=== PATIENT | female | born 1990 | race Asian ===

== ENCOUNTER 2017-04-06 12:56 | Outpatient (CLI) | payer OTHER ==
[~2017-04-06] VITALS: Ht 154.9 cm; Wt 67.3 kg
[~2017-04-06 12:56] MED LIST: IBU600 MG PO; PRENATAL PO
[2017-04-06 13:05] VITALS: BP 89/54; PULSE 76; TEMP 98.1
[2017-04-06] MEDS ORDERED: SLOW FE142 MG PO (13:12)
[2017-04-06 13:30] VITALS: BP 85/48; PULSE 74
[2017-04-06 14:07] VITALS: BP 98/64; PULSE 70
== END 2017-04-06 14:25 | disposition home or self-care (01) ==
LOC: LDRO 12:56 → LDR 13:23 → LDRO 14:25
DX: Z34.83 Encounter for supervision of other normal pregnancy, third trimester (principal); Z3A.39 39 weeks gestation of pregnancy
CPT/HCPCS: OP

== ENCOUNTER 2017-04-08 18:43 | Inpatient (IN) | payer OTHER ==
[2017-04-08] VITALS (17 sets, daily range): BP systolic 102–127; BP diastolic 53–85; PULSE 80–100; TEMP 98.6
[~2017-04-08] VITALS: Ht 154.9 cm; Wt 67.3 kg
[~2017-04-08 18:43] MED LIST changes: +SLOW FE142 MG PO
[2017-04-08 19:52] LABS: BASO % 0.2 % (0.0-2.0); EOS % 0.4 % (0-4.0); GRAN # 6.7 (1.4-6.5); GRAN % 79.4 % (42.2-75.2); HEMOGLOBIN 12.1 g/dl (12.5-16.0); LYMPH # 1.2 (1.2-3.4); LYMPH % 13.8 % (20.0-51.0); MEAN CELL VOLUME 95 fl (80.0-100.0); MEAN CORPUSCULAR HEMOGLOBIN 32 pg (27.0-31.0); MEAN CORPUSCULAR HGB CONC 34 g/dl (33.0-37.0); MEAN PLATELET VOLUME 10.5 fl (7.4-10.4); MONO # 0.5 (0.1-0.6); MONO % 5.7 % (1.7-9.3); PLATELET COUNT 238 K/mm3 (130-400); RED BLOOD COUNT 3.75 M/mm3 (4.10-5.30); REDCELL DISTRIBUTION WIDTH-CV 13.1 % (11.5-14.5)
[2017-04-08 19:53] LABS: HEMATOCRIT 35.7 % (37.0-47.0)
[2017-04-08] MEDS ORDERED: MOTRIN 800800 MG/TAB PO (20:31)
[2017-04-08] MEDS ORDERED: PERCOCET 325 MG1 TA2 PO (20:31)
[2017-04-09] VITALS (8 sets, daily range): BP systolic 86–114; BP diastolic 51–65; PULSE 78–89; TEMP 97.6–98.4
[2017-04-10 00:24] VITALS: BP 95/56; PULSE 70; TEMP 98.5
[2017-04-10 08:15] VITALS: BP 90/62; PULSE 88; TEMP 98.2
== END 2017-04-10 15:15 | disposition home or self-care (01) | DRG 775 ==
LOC: LDRO 18:43 → LDR 19:20 → OB 04-09 03:30
PROVIDERS: Obstetrics & Gynecology
PROC: 10E0XZZ Delivery of Products of Conception, External Approach (ICD-10-PCS; principal; 2017-04-08)
PROC: 0KQM0ZZ Repair Perineum Muscle, Open Approach (ICD-10-PCS; 2017-04-08)
DX: O70.1 Second degree perineal laceration during delivery (principal); Z3A.39 39 weeks gestation of pregnancy; Z37.0 Single live birth
CPT/HCPCS: J2590; J2795; J7120